=== PATIENT | female | born 1960 | race Caucasian/White ===

== ENCOUNTER 2020-04-13 07:14 | Outpatient (CLI) | payer OTHER, SELFPAY ==
--- NOTE | ~2020-04-13 | MM_ITS ---
EXAMINATION: MM screening [facility] BI w cesar HISTORY: Screening mammogram TECHNIQUE: Craniocaudal and mediolateral oblique 3-D tomosynthesis images were obtained and synthetic 2-D images were generated. CAD analysis was submitted and interpreted. COMPARISON: Comparison to multiple prior studies sequentially, with oldest reviewed study dated 10/06. BREAST PARENCHYMAL COMPOSITION: There are scattered areas of fibroglandular density. FINDINGS: There is no evidence of suspicious mass, calcification, or architectural distortion to sugg est malignancy in either breast. There has been no suspicious interval change. IMPRESSION: 1. No mammographic evidence of malignancy. 2. Recommend routine screening mammography in one year. BI-RADS Category 1: Negative Reviewed, dictated and finalized at location A.
== END 2020-04-13 07:15 | disposition home or self-care (01) ==
LOC: ANHIMG 07:20
PROVIDERS: PCP Family Medicine; Visit Provider Physician Assistant
DX: Z12.31 Encounter for screening mammogram for malignant neoplasm of breast (principal)
CPT/HCPCS: 77063; 77067

== ENCOUNTER → 2021-02-17 11:41 | Outpatient (CLI) | payer OTHER, SELFPAY ==
--- NOTE | ~2021-02-17 | XR_ITS ---
EXAMINATION: XR hip LT min 2V DATE: 02/17/2021 12:30 INDICATION: Left hip pain. TECHNIQUE: 2 views of left hip were obtained. COMPARISON: None. FINDINGS: Bone alignment is normal. No fracture. There is mild left hip osteoarthritis. IMPRESSION: 1. Mild left hip osteoarthritis. Reviewed, dictated and finalized at location A.
== END ==
PROVIDERS: PCP Family Medicine; Visit Provider Physician Assistant
DX: M16.12 Unilateral primary osteoarthritis, left hip (principal)
CPT/HCPCS: 73502

== ENCOUNTER 2021-04-15 07:56 | Outpatient (CLI) | payer OTHER, SELFPAY ==
--- NOTE | ~2021-04-15 | MM_ITS ---
EXAMINATION: MM screening [facility] BI w cesar HISTORY: Screening mammogram TECHNIQUE: Craniocaudal and mediolateral oblique 3-D tomosynthesis images were obtained and synthetic 2-D images were generated. CAD analysis was submitted and interpreted. COMPARISON: 04/13, 01/13/2019, 01/04/2008 18 bilateral digital screening mammogram examinations BREAST PARENCHYMAL COMPOSITION: There are scattered areas of fibroglandular density. FINDINGS: Occasional bilateral benign calcifications. There is no evidence of suspicious mass, calcif ication, or architectural distortion to suggest malignancy in either breast. There has been no suspic ious interval change. IMPRESSION: 1. No mammographic evidence of malignancy. 2. Recommend routine screening mammography in one year. BI-RADS Category 1: Negative Reviewed, dictated and finalized at location A.
== END 2021-04-15 07:57 | disposition home or self-care (01) ==
LOC: ANHIMG 07:58
PROVIDERS: PCP Family Medicine; Visit Provider Physician Assistant
DX: Z12.31 Encounter for screening mammogram for malignant neoplasm of breast (principal)
CPT/HCPCS: 77063; 77067

== ENCOUNTER 2022-06-26 08:03 | Outpatient (CLI) | payer OTHER, SELFPAY ==
--- NOTE | ~2022-06-26 | MM_ITS ---
EXAMINATION: MM screening [facility] BI w cesar HISTORY: Screening TECHNIQUE: Craniocaudal and mediolateral oblique 3-D tomosynthesis images were obtained and synthetic 2-D images were generated. CAD analysis was submitted and interpreted. COMPARISON: Comparison to multiple prior studies sequentially, with oldest reviewed study dated 08/05. BREAST PARENCHYMAL COMPOSITION: The breasts are almost entirely fatty. FINDINGS: There is no evidence of suspicious mass, calcification, or architectural distortion to sugg est malignancy in either breast. There has been no suspicious interval change. IMPRESSION: 1. No mammographic evidence of malignancy. 2. Recommend routine screening mammography in one year. BI-RADS Category 1: Negative Reviewed, dictated and finalized at location A.
== END 2022-06-26 08:04 | disposition home or self-care (01) ==
PROVIDERS: PCP Family Medicine; Visit Provider Physician Assistant
DX: Z12.31 Encounter for screening mammogram for malignant neoplasm of breast (principal)
CPT/HCPCS: 77063; 77067

== ENCOUNTER 2024-03-22 08:30 | Outpatient (CLI) | payer OTHER, SELFPAY ==
--- NOTE | ~2024-03-22 | MM_ITS ---
EXAMINATION: MM screening [facility] BI w cesar HISTORY: Screening TECHNIQUE: Craniocaudal and mediolateral oblique 3-D tomosynthesis images were obtained and synthetic 2-D images were generated. CAD analysis was submitted and interpreted. COMPARISON: Comparison to multiple prior studies sequentially, with oldest reviewed study dated 08/06. BREAST PARENCHYMAL COMPOSITION: Not dense: There are scattered areas of fibroglandular density. FINDINGS: There is no evidence of suspicious mass, calcification, or architectural distortion to sugg est malignancy in either breast. There has been no suspicious interval change. IMPRESSION: 1. No mammographic evidence of malignancy. 2. Recommend routine screening mammography in one year. BI-RADS Category 1: Negative Reviewed, dictated and finalized at location A.
== END 2024-03-22 08:31 | disposition home or self-care (01) ==
PROVIDERS: PCP Family Medicine; Visit Provider Physician Assistant
DX: Z12.31 Encounter for screening mammogram for malignant neoplasm of breast (principal)
CPT/HCPCS: 77063; 77067

== ENCOUNTER 2025-02-17 00:54 | Day surgery (SDC) | payer OTHER, SELFPAY ==
[2025-02-06 15:16] VITALS: BMI 30.7
--- OUTSIDE RECORDS SUMMARY | 2025-02-17 00:58 | XMS_ITS | Clinical Summary ---
Author Organization [facility] Address [address] [place] [address] Care Team Providers Care Table Filler Name Role Phone Khurram Trinidad MD Primary Care Provider [phone] Allergies No known active allergies Medications lisinopriL (PRINIVIL,ZESTR IL) 10 mg tabletIndicatio ns:hypertension Take 1 tablet (10 mg total) by mouth nightly Active ascorbic acid (ascorbic acid with mack hips) 500 mg tablet,chewable Indications:sup plement Take 1 tablet/chew tab (500 mg total) by mouth 2 (two) times a day Active magnesium gluconate 200 mg tabletIndicatio ns:hypomagnesem ia Take 1 tablet (200 mg total) by mouth nightly Active calcium carbonate (OS-RADHA) 648 mg (260 mg elemental) tabletIndicatio ns:supplement Take 260 mg by mouth nightly Active cyanocobalamin/ folic acid (vitamin J28-qflfc acid) 500-400 mcg tabletIndicatio ns:Vitamin Deficiency Prevention Take 1 tablet by mouth every morning Active glucosamine HCl 500 mg tabletIndicatio ns:supplement Take 1 tablet by mouth 2 (two) times a day Active prednisoLONE acetate (PRED FORTE) 1 % ophthalmic suspension Administer 1 drop into both eyes 3 (three) times a day 5 mL 1 Active Additional Information Patient not taking.Informant: Self, Reported on 01/12/2025 aspirin 81 mg enteric coated tabletIndicatio ns:prevention of thrombosis Take 1 tablet (81 mg total) by mouth nightly Active turmeric root extract 500 mg capsuleIndicati ons:supplement Take 1 tablet by mouth nightly Active UNABLE TO FINDIndications :supplement Take by mouth every morning Med Name: Maryjane Cinnamon- 1 capsule Active vitamin E acetate (VITAMIN E ORAL)Indication s:supplement Take 1 tablet by mouth 2 (two) times a day Active cetirizine (ZyrTEC) 10 mg tabletIndicatio ns:Allergic Rhinitis Take 1 tablet (10 mg total) by mouth every morning Active multivitamin tabletIndicatio ns:Vitamin Deficiency Prevention Take 1 tablet by mouth every morning Active estradiol-noret hindrone (ACTIVELLA) 1-0.5 mg per tabletIndicatio ns:Atrophy of Vulva Take 1 tablet by mouth every morning Active erythromycin (ILOTYCIN) ophthalmic ointment Apply to eyelids 3 times a day for crusting or irritation 3.5 g 3 Active Active Problems Problem Noted Date Diagnosed Date 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) [address] [place] [phone] Sandro Rodriguez MD Fischer, Elissa U., NP 01/05/2025 1:00 PM YARN WINDER - 01/05/2025 2:15 PM YARN WINDER Surgery [facility] ([facility]) [address] [place] [address] Hal Deshpande MD CRYOTHERAPY 01/05/2025 10:19 AM YARN WINDER - 01/05/2025 3:15 PM YARN WINDER Hospital Encounter [facility] (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); Cicatricial entropion of right lower eyelid 11/28/2024 Telephone [facility]hthalmology [address] [place] [phone] Hal Deshpande MD from Last 3 Months Surgical History Surgery Date Site/Laterality Comments KNEE SURGERY 11/05/1980 - 11/04/1981 Right COLPOSCOPY 11/05/1989 - 11/04/1990 pre-cancerous cells from cervix COLONOSCOPY last one 2013 CRYOTHERAPY 01/05/2025 Bilateral CRYOTHERAPY (Bilateral: Eye) 01-05-2025, entropion BLLs Medical History Medical History Date Comments High blood pressure Family History Medical History Relation Name Comments Anesthesia problems Neg Hx Social History Tobacco Use Types Packs/Day Years Used Date Smoking Tobacco: Former Cigarettes 0.5 17 1 983 - 2000 Passive Smoke Exposure: Past Smokeless Tobacco: Never Tobacco Cessation:Counseling Given: Not Answered AUDIT-C Answer Date Recorded Q1: How often do you have a drink containing alc ohol? 2-3 times a week 01/05/2025 Q2: How many drinks containi ng alcohol do you have on a typical day when you are drinking? 1 or 2 01/05/2025 Q3: How often do you have si x or more drinks on one occasion? Never 01/05/2025 Personal Safety Answer Date Recorded Have you ever been in or are you currently in a harmful physical or emotional relationship or is someone making you feel afraid or unsafe? Denies 01/05/2025 Comments Unknown Sex and Gender Information Value Date Recorded Sex Assigned at Not on file Legal Sex Female 5:22 AM YARN WINDER Gender Identity Not on file Sexual Orientation Not on file Obstetrics History Last Filed Vital Signs Vital Sign Reading Time Taken Comments Blood Pressure 124/73 01/05/2025 2:00 PM YARN WINDER Pulse 70 01/05/2025 2:00 PM YARN WINDER Temperature 36.2 C (97.2 F) 01/05/2025 1:50 PM YARN WINDER Respiratory Rate 17 01/05/2025 2:00 PM YARN WINDER Oxygen Saturation 96% 01/05/2025 2:00 PM YARN WINDER Inhaled Oxygen Concentration - - Weight 70.3 kg (155 lb) 01/05/2025 10:40 AM YARN WINDER Height 152.4 cm (5') 12/11/2024 9:48 AM YARN WINDER Body Mass Index 30.27 12/11/2024 9:48 AM YARN WINDER Plan of Treatment Health Maintenance Due Date Last Done Comments Breast Cancer Screening-Mammogram 1962 Cervical Cancer Screening 1962 Colon Cancer Screening-Colonoscopy 1962 Depression Screening 1962 Hepatitis C Screening 1962 DTaP/Tdap/Td Vaccine (1 - Tdap) 1973 Hepatitis B Screening 02/21/1980 Regular Well Visit/Exam 18-64 02/21/1980 Zoster Vaccine (1 of 2) 02/21/2012 Influenza Vaccine (#1) 2024 Pneumococcal vaccine <65 Aged Out No longer eligible based on patient's age to complete this topic Procedures Procedure Name Priority Date/Time Associated Diagnosis Comments CRYOTHERAPY 01/05/2025 1:11 PM YARN WINDER 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
--- OUTSIDE RECORDS SUMMARY | 2025-02-17 00:58 | XMS_ITS | Referral Summary ---
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) 01/05/2025 1:00 PM AUTOMOTIVE PARTS ADVISOR - 01/05/2025 2:15 PM AUTOMOTIVE PARTS ADVISOR Surgery [facility] ([facility]) [address] [place] [phone] Hal Deshpande MD CRYOTHERAPY 01/05/2025 1:07 PM AUTOMOTIVE PARTS ADVISOR Anesthesia Event [facility] ([facility]) [address] [place] [phone] Sandro Rodriguez MD Fischer, Elissa U., NP 01/05/2025 10:19 AM AUTOMOTIVE PARTS ADVISOR - 01/05/2025 3:15 PM AUTOMOTIVE PARTS ADVISOR Hospital Encounter [facility] ([facility]) [address] [place] [address] Hal Deshpande MD 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); Cicatricial entropion of right lower eyelid 11/28/2024 Telephone [facility] Ophthalmology [address] [place] [phone] Hal Deshpande MD from Last 3 Months Allergies No known active allergies Medications lisinopriL [...] mouth nightly Active cyanocobalamin/ folic acid (vitamin G38-yqnhb acid) 500-400 mcg tabletIndicatio ns:Vitamin Deficiency Prevention [...] by mouth every morning Med Name: Maryjane Galvin- 1 capsule Active vitamin E acetate (VITAMIN [...] Take 1 tablet by mouth every morning 5 Active erythromycin (ILOTYCIN) ophthalmic ointment Apply to eyelids 3 times a day for crusting or irritation 3.5 g 3 5 Active Active Problems Problem Noted Date Diagnosed Date Cicatricial ectropion of upper eyelids of both e yes 12/01/2024 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 11/06 Social History Tobacco Use Types Packs/Day Years [...] on file Legal Sex Female 5:22 AM AUTOMOTIVE PARTS ADVISOR Gender Identity Not on file Sexual Orientation Not on file Last Filed Vital Signs Vital Sign Reading Time Taken Comments Blood Pressure 124/73 01/05/2025 2:00 PM AUTOMOTIVE PARTS ADVISOR Pulse 70 01/05/2025 2:00 PM AUTOMOTIVE PARTS ADVISOR Temperature 36.2 C (97.2 F) 01/05/2025 1:50 PM AUTOMOTIVE PARTS ADVISOR Respiratory Rate 17 01/05/2025 2:00 PM AUTOMOTIVE PARTS ADVISOR Oxygen Saturation 96% 01/05/2025 2:00 PM AUTOMOTIVE PARTS ADVISOR Inhaled Oxygen Concentration - - Weight 70.3 kg (155 lb) 01/05/2025 10:40 AM AUTOMOTIVE PARTS ADVISOR Height 152.4 cm (5') 12/11/2024 9:48 AM AUTOMOTIVE PARTS ADVISOR Body Mass Index 30.27 12/11/2024 9:48 AM AUTOMOTIVE PARTS ADVISOR Plan of Treatment Not on file Procedures Procedure Name Priority Date/Time Associated Diagnosis Comments CRYOTHERAPY 01/05/2025 1:11 PM AUTOMOTIVE PARTS ADVISOR 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
[2025-02-17 06:57] VITALS: BP 141/75; PULSE 80; RESP 16; TEMP 36.1; O2SAT 95
[2025-02-17] MEDS: LACTATED RINGERS 1,000 ML 150 ML IV CONT (07:03)
--- NOTE | 2025-02-17 07:04 | WPDANESEPPF ---
Anes - Initial Pre Proc Eval Procedure: Operation Date: 02/17/25 08:00 Proposed Procedures p Colonoscopy - Anjel Ny MD Date/Time: 02/17/25 07:04 Surgeon: Anjel Ny MD Pre Op Diagnosis: other fecal abnormalities Patient Data Age: 64 Gender: F Height: 1.52 m Weight: 71.3 kg Last Vital Signs Temp 36.1 C L 02/17/25 06:57 Pulse 80 02/17/25 06:57 Resp 16 02/17/25 06:57 BP 141/75 H 02/17/25 06:57 Pulse Ox 95 02/17/25 06:57 O2 Del Method Room Air 02/17/25 06:57 Allergies Allergy/AdvReac Type Severity Reaction Status Date / Time No Known Allergies Allergy Unknown Verified 02/17/25 06:55 Home Medications ?Medication ?Instructions ?Recorded ?Confirmed ?Type ascorbic acid (vitamin C) 500 mg 500 mg PO DAILY #30 caps 01/17/23 02/17/25 Rx capsule aspirin 81 mg tablet,delayed 81 mg PO DAILY #30 tabs 01/17/23 02/17/25 Rx release calcium carbonate 600 mg PO DAILY #30 tabs 01/17/23 02/17/25 Rx cetirizine 10 mg capsule (Zyrtec) 10 mg PO DAILY 01/17/23 02/17/25 History fish,safflwr,flax,borag 2 cap PO DAILY #30 caps 01/17/23 02/17/25 Rx oils-om3,6,9 #2 800 mg-200 mg-150 mg-50 mg cap (Lrmz-Hddh-Izzchi Oil) magnesium 250 mg tablet 250 mg PO DAILY #30 tabs 01/17/23 02/17/25 Rx yomxplsc-slv-gguac acid 0.4 1 tablet PO DAILY #30 tabs 01/17/23 02/17/25 Rx mg-lycopene 300 mcg-lutein 250 mcg tablet (Complete Multivitamin Adult 50 Plus) lisinopril 10 mg tablet See Rx Instructions .Route 09/09/24 02/17/25 Rx .COMPLEX #90 tabs estradiol-norethindrone acet 1 1 tablet PO DAILY #84 tabs 11/27/24 02/17/25 Rx mg-0.5 mg tablet Patient hx anesthesia problems: none Family hx anesthesia problems: none Results Review: All pre-operative results and documents have been reviewed as part of the pre-operative evaluation. [facility] Past Medical History Medical History Pure hypercholesterolemia, unspecified Allergic rhinitis Osteoarthritis Hot flashes Migraines Hypertension Surgical History Surgical History Hx of prior ablation treatment cervix 1990 History of arthroscopic knee surgery right knee Family History Family History Father Hypertension Heart disease Mother Hypertension COPD (chronic obstructive pulmonary disease) Grandparent Acute myocardial infarction Heart disease COPD (chronic obstructive pulmonary disease) Diabetes mellitus Black lung disease Social History Social History Smoking status: Former smoker Tobacco type: cigarettes Alcohol intake: current Drinks per week: 4 Substance use: current Substance use type: marijuana Do You Feel Safe in your Home?: Yes Lack of Transportation: No Lack of Food: Never True Current Housing: I Have Housing Concerned About Future Housing: No Difficulty Paying Gas/Electric Bills: No Difficulty Paying for Meds: No Currently Unemployed: YES Education: High School Diploma/GED Difficulty w/ Childcare or Family Care: No Living arrangements: with family Occupation/Education: retired Gender identity (if verbalized by the patient): Female Sexual Orientation (if Verbalized by the Patient): Straight or Heterosexual Spiritual care concerns: No Agree to blood products: No Anes - Eval Final PreProcedure Day of Procedure 02/17/25 07:04 Patient weight: obese Heart: regular rate and rhythm Lungs: clear to auscultation Airway: Mallampati scale class II Neurological: alert and oriented Last oral intake: >/= 8 hours ASA classification: III Emergent: no Anesthetic plan: proceed Anesthesia type and monitoring: general GIVS and standard monitoring Results Review: All pre-operative results and documents have been reviewed as part of the pre-operative evaluation. Informed Consent: The patient's anesthetic plan and its attendant risks and benefits were discussed with the patient/family/POA. Questions were solicited and answers provided to the satisfaction of the patient/family/POA.
--- NOTE | 2025-02-17 07:55 | PM.HPGS ---
History of Present Illness History of Present Illness Consent: Risks, benefits, and alternatives have been discussed and questions answered. Patient agrees to proceed with procedure. Chief complaint: other fecal abnormalities Narrative: Ana Lopez is a 64 year old female here for + cologuard, last colonoscopy 11 years ago Review of Systems Review of Systems: All systems reviewed & are unremarkable except as noted in HPI and below PMFSH Past Medical History Medical History (Updated 02/17/25 @ 07:55 by Anjel Ny MD) Positive colorectal cancer screening using Cologuard test Pure hypercholesterolemia, unspecified Allergic rhinitis Osteoarthritis Hot flashes Migraines Hypertension Surgical History Surgical History Hx of prior ablation treatment cervix 1990 History of arthroscopic knee surgery right knee Family History Family History Father Hypertension Heart disease Mother Hypertension COPD (chronic obstructive pulmonary disease) Grandparent Acute myocardial infarction Heart disease COPD (chronic obstructive pulmonary disease) Diabetes mellitus Black lung disease Social History Social History Smoking status: Former smoker Tobacco type: cigarettes Alcohol intake: current Drinks per week: 4 Substance use: current Substance use type: marijuana Do You Feel Safe in your Home?: Yes Lack of Transportation: No Lack of Food: Never True Current Housing: I Have Housing Concerned About Future Housing: No Difficulty Paying Gas/Electric Bills: No Difficulty Paying for Meds: No Currently Unemployed: YES Education: High School Diploma/GED Difficulty w/ Childcare or Family Care: No Living arrangements: with family Occupation/Education: retired Gender identity (if verbalized by the patient): Female Sexual Orientation (if Verbalized by the Patient): Straight or Heterosexual Spiritual care concerns: No Agree to blood products: No Meds Home Medications and Allergies Home Medications ?Medication ?Instructions ?Recorded ?Confirmed ?Type ascorbic acid (vitamin C) 500 mg 500 mg PO DAILY #30 caps 01/17/23 02/17/25 Rx capsule aspirin 81 mg tablet,delayed 81 mg PO DAILY #30 tabs 01/17/23 02/17/25 Rx release calcium carbonate 600 mg PO DAILY #30 tabs 01/17/23 02/17/25 Rx cetirizine 10 mg capsule (Zyrtec) 10 mg PO DAILY 01/17/23 02/17/25 History fish,safflwr,flax,borag 2 cap PO DAILY #30 caps 01/17/23 02/17/25 Rx oils-om3,6,9 #2 800 mg-200 mg-150 mg-50 mg cap (Pdpt-Acwh-Zbecwd Oil) magnesium 250 mg tablet 250 mg PO DAILY #30 tabs 01/17/23 02/17/25 Rx qoevmbfl-jem-pmozn acid 0.4 1 tablet PO DAILY #30 tabs 01/17/23 02/17/25 Rx mg-lycopene 300 mcg-lutein 250 mcg tablet (Complete Multivitamin Adult 50 Plus) lisinopril 10 mg tablet See Rx Instructions .Route 09/09/24 02/17/25 Rx .COMPLEX #90 tabs estradiol-norethindrone acet 1 1 tablet PO DAILY #84 tabs 11/27/24 02/17/25 Rx mg-0.5 mg tablet Allergies Allergy/AdvReac Type Severity Reaction Status Date / Time No Known Allergies Allergy Unknown Verified 02/17/25 06:55 Vital Signs Vital Signs - 24 hr 02/17/25 06:57 Temperature 96.9 F L Pulse Rate 80 Respiratory Rate 16 Blood Pressure 141/75 H Pulse Oximetry 95 Oxygen Delivery Room Air Exam Const: General: comfortable and no acute distress HENMT: Face/Nose/Sinus: Normal nares present Eyes: General: appearance normal, both eyes and all related structures Neck: Neck: no JVD Resp: Auscultation: clear to auscultation bilaterally Cardio: Rate: regular rate Rhythm: regular rhythm GI: Inspection: non-distended GI Palp: Yes Soft to palpation Skin: General skin exam: normal color Neuro: General: gait normal Speech: normal speech Extrem: General: normal to inspection Psych: Mental Status: mental status grossly normal Assessment and Plan Assessment and plan (1) Positive colorectal cancer screening using Cologuard test: Code(s): R19.5 - Other fecal abnormalities Status: Acute Assessment and Plan: colonoscopy
[2025-02-17 08:12] VITALS: BP 100/62; PULSE 68; RESP 16; O2SAT 96
[2025-02-17 08:22] VITALS: BP 121/76; PULSE 71; RESP 16; O2SAT 100
[2025-02-17 08:32] VITALS: BP 129/70; PULSE 62; RESP 16; O2SAT 100
== END 2025-02-17 08:45 | disposition home or self-care (01) ==
PROVIDERS: PCP Family Medicine; Referring Provider Family Medicine; Visit Provider Internal Medicine Gastroenterology
PROC: 0DJD8ZZ Inspection of Lower Intestinal Tract, Via Natural or Artificial Opening Endoscopic (ICD-10-PCS; CPT 45378; principal; 2025-02-17 08:00)
DX: R19.5 Other fecal abnormalities (principal); D12.8 Benign neoplasm of rectum; K64.8 Other hemorrhoids; F12.90 Cannabis use, unspecified, uncomplicated; Z87.891 Personal history of nicotine dependence; E66.9 Obesity, unspecified; Z68.30 Body mass index [BMI] 30.0-30.9, adult
CPT/HCPCS: 45385; 88305; J2704; J7120